=== PATIENT | female | born 1975 | race Two or more races ===

== ENCOUNTER 2024-11-06 14:55 | Emergency (ER) | payer BC, OTHER ==
[~2024-11-06] VITALS: Ht 165.1 cm; Wt 104.7 kg
--- NOTE | 2024-11-06 15:31 | ED.PDOC ---
History of Present Illness HPI Comments This patient is a morbidly obese 49-year-old female who presents to the ER w/ complaints of left knee pain. Patient states that she was dancing several days ago and that is subsequent to that event, has had knee concerns. Patient states she has had knee issues in the past. Patient is able to bear weight but with difficulty. Patient denies any fever nausea or vomiting. Vital signs were stable on arrival. Chief Complaint: Lower Extremity Time Seen by MD: 15:20 Primary Care Provider: TERENCE Caldera Notes: Nurses Notes, Medications, Allergies Allergies: Coded Allergies: NO KNOWN ALLERGIES (Unverified , 11/06/24) Information Source: Patient Mode of Arrival: Ambulatory Severity: Moderate Timing: Days Duration: Since onset, Days Prehospital treatment: None Past Medical History PAST MEDICAL HISTORY: Denies Past Medical History (Other): History of left knee concerns Surgical History: Denies all surgeries ACCOUNTING PROFESSIONAL History: No Pertinent ACCOUNTING PROFESSIONAL History Family History Family History: Reviewed,noncontributory to illness, Unknown Social History Smoker: Non-Smoker Alcohol: Denies ETOH Use Drugs: Denies Drug Use Lives In: Home Constitutional: denies: chills, diaphoresis, fatigue, fever, malaise, sweats, weakness, others EENTM: denies: blurred vision, double vision, ear bleeding, ear discharge, ear drainage, ear pain, ear ringing, eye pain, eye redness, hearing loss, mouth pain, mouth swelling, nasal discharge, nose bleeding, nose congestion, nose pain, photophobia, tearing, throat pain, throat swelling, voice changes, others Respiratory: denies: cough, hemoptysis, orthopnea, SOB at rest, shortness of breath, SOB with excertion, stridor, wheezing, others Cardiovascular: denies: chest pain, dizzy spells, diaphoresis, Dyspnea on exertion, edema, irregular heart beat, left arm pain, lightheadedness, palpitations, PND, syncope, others Gastrointestinal: denies: abdomen distended, abdominal pain, blood streaked bowels, constipated, diarrhea, dysphagia, difficulty swallowing, hematemesis, melena, nausea, poor appetite, poor fluid intake, rectal bleeding, rectal pain, vomiting, others Genitourinary: denies: abnormal vagina bleeding, burning, dyspareunia, dysuria, flank pain, frequency, hematuria, incontinence, pain, , vagina disch arge, urgency, others Neurological: denies: dizziness, fainting, headache, left sided numbness, left sided weakness, numbness, paresthesia, pre-existing deficit, right sided numbness, right sided weakness, seizure, speech problems, tingling, tremors, weakness, others Musculoskeletal: reports: others (Left knee pain); denies: back pain, gout, joint pain, joint swelling, muscle pain, muscle stiffness, neck pain Integumetry: denies: bruises, change in color, change in hair/nails, dryness, laceration, lesions, lumps, rash, wounds, others Allergic/Immunocompromised: denies: Difficulty Healing, Frequent Infections, Hives, Itching, others Hematologic/Lymphatic: denies: anemia, blood clots, easy bleeding, easy bruising, swollen glands, others Endocrine: denies: excessive hunger, excessive sweating, excessive thirst, excessive urination, flushing, intolerance to cold, intolerance to heat, unexplained weight gain, unexplained weight loss, others Psychiatric: denies: anxiety, bipolar disorder, depression, hopeless, panic disorder, schizophrenia, sleepless, suicidal, others All Other Systems: Reviewed and Negative Physical Exam General Appearance: Moderate Distress ([id number] distress due to left knee pain concerns. Patient came to the facility by herself. Patient states she took ibuprofen prior to arrival.), Obese HEENT: Normal ENT Inspection, Pharynx Normal, TMs Normal Neck: Full Range of Motion, Non-Tender, Normal, Normal Inspection Respiratory: Chest Non-Tender, Lungs Clear, No Accessory Muscle Use, No Respiratory Distress, Normal Breath Sounds Cardiovascular: No Edema, No JVD, No Murmur, No Gallop, Normal Peripheral Pulses, Regular Rate/Rhythm Breast Exam: Deferred Gastrointestinal: No Organomegaly, Non Tender, No Pulsatile Mass, Normal Bowel Sounds, Soft Genitalia: Deferred Pelvic: Deferred Rectal: Deferred Extremities: Other (Bilateral plateau tenderness with greater posterior knee tenderness throughout the hamstring and gastroc. No mass noted. Moderate reduced range of motion. Distal neurovascularly intact.) Musculoskeletal : Apperance: Normal Neurologic: Alert, No Motor Deficits, Normal Affect, Normal Mood, No Sensory Deficits Cerebellar Function: Normal Reflexes: Normal Skin: Dry, Normal Color, Warm Lymphatic: No Adenopathy Was a procedure done? Was a procedure done?: No Differential Dx Considerations may include: Knee fracture, internal knee derangement X-Ray, Labs, Meds, VS Vital Signs Date Time Temp Pulse Resp B/P (MAP) Pulse Ox O2 Delivery O2 Flow Rate FiO2 11/06/24 15:04 97.9 82 20 135/89 (104) 100 97.9 X-Ray, Labs, Meds, VS Comment All studies performed the ED were evaluated by me personally. Imaging studies of the knee were unremarkable for any acute fractures. Patient has some degeneration of her knee joint. Advised patient follow up with primary care provider for orthopedic referral and evaluation. Pain medication as needed as well as ice therapy. Time of 1ST Reevaluation: 16:33 Reevaluation 1ST: Unchanged Consultation: PCP Patient Education/Counseling: Diagnosis, Treatment, Prognosis Family Education/Counseling: Diagnosis, Treatment, No Family Present Departure 1 Departure Time of Disposition: 16:33 Impression: Primary Impression: Internal derangement of knee Disposition: 01 HOME / SELF CARE / HOMELESS Condition: Stable Additional Instructions: Advised patient utilize medication as needed as well as ice therapy. Patient should follow up with the primary care provider for orthopedic referral and evaluation e-Prescriptions Hydrocodone-Acetaminophen (Hydrocodone Bitartrate/AC 5-325 mg) 1 Tab Tab 1 TAB PO Q6HP PRN, #12 TAB Prov: JENNIFER REGALADO PAC 11/06/24 Discharged With: Self Critical Care Note Critical Care Time?: No Stability Stability form required: No Heart Score Heart Score: Heart Score Response (Comments) Value History N/A 0 EKG N/A 0 Age N/A 0 Risk Factors N/A 0 Troponin N/A 0 Total 0 I personally scribed for JENNIFER REGALADO PAC ([email or web address]) on 11/06/24 at 15:31. Electronically submitted by Mason Polk ([email or web address]). JENNIFER REGALADO PAC Nov 06, 2024 15:31
--- NOTE | 2024-11-06 16:03 | DVH ---
CLINICAL INDICATION: Trauma TECHNIQUE: 3 views of the left knee Comparison: None FINDINGS/IMPRESSION: There is no evidence of acute fracture or dislocation. Mild medial knee compartment degenerative pham ges. Soft tissues are unremarkable.
[2024-11-06] MEDS ORDERED: HYDR-4902 PO (16:34)
[2024-11-06 16:44] VITALS: BP 137/80; PULSE 77; RESP 12; TEMP 98.3; O2SAT 96
== END 2024-11-06 16:46 | disposition home or self-care (01) ==
LOC: ER 14:55
DX: M23.92 Unspecified internal derangement of left knee (principal); E66.01 Morbid (severe) obesity due to excess calories
CPT/HCPCS: 73562